=== PATIENT | female | born 1935 | race Caucasian/White ===

== ENCOUNTER 2021-05-29 08:51 | Emergency (ER) | payer OTHER, MEDICAID ==
[~2021-05-29] VITALS: Ht 160 cm; Wt 73.0 kg
[2021-05-29] MEDS ORDERED: HYDROCODONE/ACETAMINOPHEN 5/325MG TABLET PO ONE (09:15)
[2021-05-29 09:52] LABS: BASOPHILS % 0.3 % (0.0-2.0); EOSINOPHILS % 0.5 % (0.0-5.0); HEMATOCRIT. 37.3 % (36.0-48.0); LYMPHOCYTES % 13.5 % (20.0-50.0); MEAN CORPUSCULAR HEMOGLOBIN 29.8 pg (28.0-32.0); MEAN CORPUSCULAR VOLUME 85.5 fL (81.0-99.0); MONOCYTES % 10.5 % (2.0-8.0); NEUTROPHILS % 75.2 % (40.0-76.0); PLATELET 135 x1000/uL (130-400); RED BLOOD CELL COUNT 4.36 mill/uL (4.2-5.4); RED CELL DISTRIBUTION WIDTH 14.9 % (11.6-14.6)
[2021-05-29 10:00] LABS: CHLORIDE 109 mEq/L (98-107)
[2021-05-29 10:10] LABS: CLARITY URINE CLEAR (CLEAR); COLOR URINE YELLOW (YELLOW); KETONES URINE NEGATIVE (NEGATIVE); LEUKOCYTE ESTERASE URINE NEGATIVE (NEGATIVE); NITRITE URINE NEGATIVE (NEGATIVE); OCCULT BLOOD URINE NEGATIVE (NEGATIVE); PROTEIN URINE NEGATIVE (NEGATIVE); SPECIFIC GRAVITY URINE 1.011 (1.005-1.030); UROBILINOGEN URINE 0.2 E.U./dL (0.2-1.0)
[2021-05-29] MEDS ORDERED: KETOROLAC 60MG/2ML VIAL IM ONE (11:45)
[2021-05-29] MEDS ORDERED: LIDO15CR6 TP (12:47)
[2021-05-29] MEDS ORDERED: OXYC-662 MT (12:47)
[2021-05-29] MEDS ORDERED: ACET-2708 MT (12:47)
[2021-05-29 13:07] VITALS: BP 161/80
== END 2021-05-29 13:09 | disposition home or self-care (01) ==
LOC: ER 08:51
DX: M54.2 Cervicalgia (principal); I10 Essential (primary) hypertension; Z98.890 Other specified postprocedural states
CPT/HCPCS: 36415; 70450; 72125; 80053; 81003; 85025; 96372; 99285; J1885

== ENCOUNTER 2024-07-23 14:30 | Emergency (ER) | payer OTHER, MEDICAID ==
[~2024-07-23] VITALS: Ht 160 cm; Wt 75.0 kg
[~2024-07-23 14:30] MED LIST: ACET-2708 MT; CARV25TA47 PO; LIDO15CR6 TP; OXYC-662 MT
[2024-07-23 14:36] VITALS: BP 165/72; PULSE 76; RESP 18; TEMP 98.2; O2SAT 97
[2024-07-23 15:19] LABS: BASOPHILS % 0.6 % (0.0-2.0); EOSINOPHILS % 4.3 % (0.0-5.0); LYMPHOCYTES % 16.7 % (20.0-50.0); MEAN CORPUSCULAR HEMOGLOBIN 29.4 pg (28.0-32.0); MEAN CORPUSCULAR HGB CONC 33.3 g/dL (31.0-37.0); MEAN CORPUSCULAR VOLUME 88.4 fL (81.0-99.0); MEAN PLATELET VOLUME 8.6 fl (7.4-10.4); MONOCYTES % 9.5 % (2.0-8.0); NEUTROPHILS % 68.9 % (40.0-76.0); PLATELET 191 x1000/uL (130-400); RED BLOOD CELL COUNT 3.74 mill/uL (4.2-5.4); RED CELL DISTRIBUTION WIDTH 15.3 % (11.6-14.6)
[2024-07-23 15:23] LABS: POTASSIUM 4.2 mEq/L (3.5-5.1)
[2024-07-23 15:25] LABS: CALCIUM 8.8 mg/dL (8.7-10.4)
[2024-07-23 15:29] LABS: CREATININE 1.2 mg/dL (0.6-1.0)
== END 2024-07-23 20:26 | disposition home or self-care (01) ==
LOC: ER 14:30
DX: M79.605 Pain in left leg (principal); M79.604 Pain in right leg; Z98.890 Other specified postprocedural states; Z96.653 Presence of artificial knee joint, bilateral
CPT/HCPCS: 36415; 80048; 85025; 93970; 99284